=== PATIENT | female | born 1955 | race Two or more races ===

== ENCOUNTER → 2025-03-11 | Outpatient (BNVA) | payer OTHER, SELFPAY | END | disposition home or self-care (01) | PROVIDERS: PCP Family Medicine; Referring Provider Family Medicine; Visit Provider Urology | DX: N28.1 Cyst of kidney, acquired (principal); I10 Essential (primary) hypertension; K80.20 Calculus of gallbladder without cholecystitis without obstruction; Z87.440 Personal history of urinary (tract) infections; E78.00 Pure hypercholesterolemia, unspecified | CPT/HCPCS: 81003; 99203; 99213; G0463 ==